=== PATIENT | female | born 1975 | race Two or more races ===

== ENCOUNTER 2018-06-18 15:31 | Emergency (ER) | payer OTHER ==
[~2018-06-18] VITALS: Ht 154.9 cm; Wt 56.7 kg
[2018-06-18] MEDS ORDERED: ULTRACET PO (19:25)
== END 2018-06-18 20:08 | disposition home or self-care (01) ==
LOC: ER 15:31
DX: S00.83XA Contusion of other part of head, initial encounter (principal); W18.39XA Other fall on same level, initial encounter; Y93.89 Activity, other specified; Y92.89 Other specified places as the place of occurrence of the external cause; Y99.8 Other external cause status

== ENCOUNTER 2021-04-04 11:47 | Inpatient (IN) | payer OTHER ==
[~2021-04-04] VITALS: Ht 154.9 cm; Wt 54.4 kg
[~2021-04-04 11:47] MED LIST: ULTRACET PO
[2021-04-07] MEDS ORDERED: CEFDINIR300 MG PO (15:42)
[2021-04-07] MEDS ORDERED: INTESTINEX680 M1 PO (15:43)
[2021-04-07] MEDS ORDERED: ORPHENADRINE C100 MG PO (15:43)
== END 2021-04-07 16:07 | disposition home or self-care (01) | DRG 690 ==
LOC: ER 11:47 → SEC-K 19:36 → SURG 04-05 12:23
PROVIDERS: ADMIT Internal Medicine; ATTEND Internal Medicine
DX: N39.0 Urinary tract infection, site not specified (principal); N20.0 Calculus of kidney; Z20.822 Contact with and (suspected) exposure to COVID-19

== ENCOUNTER 2021-05-08 22:35 | Emergency (ER) | payer OTHER ==
[~2021-05-08] VITALS: Ht 154.9 cm; Wt 58.1 kg
[~2021-05-08 22:35] MED LIST changes: +CEFDINIR300 MG PO; +INTESTINEX680 M1 PO; +ORPHENADRINE C100 MG PO
== END 2021-05-09 03:11 | disposition home or self-care (01) ==
LOC: ER 22:35
DX: N20.2 Calculus of kidney with calculus of ureter (principal); N39.0 Urinary tract infection, site not specified; K57.30 Diverticulosis of large intestine without perforation or abscess without bleeding